=== PATIENT | male | born 2000 | race African-American/Black ===

== ENCOUNTER 2021-09-07 07:52 | Outpatient (CLI) | payer OTHER ==
[2021-09-07 21:59] LABS: SARS-CoV-2 PCR by NAA Not Detected (NotDetected)
== END 2021-09-07 07:53 | disposition home or self-care (01) ==
LOC: LABBT 07:52
PROVIDERS: ATTEND Specialist
DX: Z01.812 Encounter for preprocedural laboratory examination (principal); J34.3 Hypertrophy of nasal turbinates; J34.2 Deviated nasal septum; G44.209 Tension-type headache, unspecified, not intractable; Z20.822 Contact with and (suspected) exposure to COVID-19
CPT/HCPCS: U0003; U0005

== ENCOUNTER 2021-09-10 06:33 | Day surgery (SDC) | payer OTHER ==
[2021-09-08 12:16] VITALS: BMI 21.7
[2021-09-10] MEDS ORDERED: Oxymetazoline HCl 0.05% (30 ML BOT) ONE (07:07)
[2021-09-10] MEDS ORDERED: AFRIN NASAL MIST 15 ML BOT ONE (08:13)
[2021-09-10] MEDS ORDERED: EPINEPHrine 1 MG/ML AMP ONE ×2 (08:13)
[2021-09-10] MEDS ORDERED: Lidocaine 1% w/Epinephrine 1:100K 20 ML VIAL ONE (08:13)
[2021-09-10] MEDS ORDERED: Midazolam HCl 2 mg/2 ml Vial ONE (08:19)
[2021-09-10] MEDS ORDERED: Fentanyl 100 MCG/2 ML VIAL ONE (08:19)
[2021-09-10] MEDS ORDERED: ePHEDrine 50 MG/ML VIAL ONE (08:50)
[2021-09-10] MEDS ORDERED: Rocuronium Bromide 10 MG/ML (10ML VIAL) ONE (08:50)
[2021-09-10] MEDS ORDERED: Ondansetron PF 4 MG/2 ML Vial ONE (08:50)
[2021-09-10] MEDS ORDERED: PROPOFOL 200 MG/20 ML VIAL ONE (08:50)
[2021-09-10] MEDS ORDERED: Dexamethasone 20 MG/5 ML VIAL ONE (08:50)
[2021-09-10] MEDS ORDERED: Lidocaine 1% PF 5 ML VIAL ONE (08:50)
[2021-09-10] MEDS ORDERED: SUGAMMADEX SODIUM 200 MG/2 ML VIAL ONE (09:15)
[2021-09-10] MEDS ORDERED: Meperidine HCl/PF 25 MG/ML VIAL ONE (09:42)
[2021-09-10] MEDS ORDERED: HYDROcodone/Acetaminophen 5/325 mg Tablet ONE (10:25)
== END 2021-09-10 11:15 | disposition home or self-care (01) ==
LOC: SDC 06:33
PROVIDERS: ATTEND Specialist
PROC: 09SM0ZZ Reposition Nasal Septum, Open Approach (ICD-10-PCS; principal; 2021-09-10)
PROC: 09TL0ZZ Resection of Nasal Turbinate, Open Approach (ICD-10-PCS; principal; 2021-09-10)
DX: J34.2 Deviated nasal septum (principal); J34.3 Hypertrophy of nasal turbinates; J01.91 Acute recurrent sinusitis, unspecified; G44.209 Tension-type headache, unspecified, not intractable; Z87.891 Personal history of nicotine dependence; Z88.1 Allergy status to other antibiotic agents
CPT/HCPCS: J0171; J1100; J2175; J2250; J2405; J2704; J3010; J3490

== ENCOUNTER 2021-12-07 14:46 | Emergency (ER) | payer BC, OTHER ==
[2021-12-07 15:40] LABS: #Eosinphils 0.1 thou/uL (0.0-0.7); #Lymphocytes 2.1 thou/uL (1.20-3.40); #Monocytes 0.4 thou/uL (0.11-0.59); #Neutrophils 2.3 thou/uL (1.40-6.50); %Basophils 0.4 % (0.0-1.0); %Eosinophils 1.7 % (0.0-10.0); %Lymphocytes 42.6 % (21.0-51.0); %Monocytes 7.5 % (0.0-10.0); %Neutrophils 47.8 % (42.0-75.0); Hemoglobin 13.8 g/dL (14.0-18.0); Mean Corpuscular HGB CONC 33.7 g/dL (32.0-36.0); Mean Corpuscular Hemoglobin 29.1 pg (27.0-31.0); Mean Corpuscular Volume 86.5 fL (78.0-98.0); Mean Platelet Volume 7.2 fL (7.4-10.4); Platelet Count 214 thou/uL (130-400); RBC Distribution Width 12.5 % (11.5-14.5); Red Blood Cell (RBC) Count 4.75 mill/uL (4.70-6.10); White Blood Cell (WBC) Count 4.8 thou/uL (4.8-10.8)
[2021-12-07 16:01] LABS: ALT (SGPT) 29 U/L (8-55); AST (SGOT) 24 U/L (5-34); Albumin 4.2 g/dL (3.5-5.0); Alkaline Phosphatase 53 U/L (40-110); Anion Gap 10 mmol/L (10-20); BUN (Urea Nitrogen) 13 mg/dL (8.9-20.6); Calc. Creatinine Clearance 0 mL/min (70-130); Calcium 9.3 mg/dL (7.8-10.44); Carbon Dioxide 30 mmol/L (22-29); Chloride 105 mmol/L (98-107); Globulin 2.8 g/dL (2.4-3.5); Glucose 75 mg/dL (70-105); Potassium 4.1 mmol/L (3.5-5.1); Sodium 141 mmol/L (136-145)
== END 2021-12-07 18:18 | disposition home or self-care (01) ==
LOC: ERS 14:46
DX: R07.9 Chest pain, unspecified (principal); Z87.891 Personal history of nicotine dependence
CPT/HCPCS: 36415; 71045; 80053; 84484; 85025; 93005